=== PATIENT | female | born 1955 | race Caucasian/White ===

== ENCOUNTER 2021-03-10 06:48 | Day surgery (SDC) | payer MEDICARE ==
[~2021-03-10] VITALS: Ht 157.5 cm; Wt 60.4 kg
[2021-03-10] MEDS ORDERED: TRAZ-96 PO (07:16)
[2021-03-10] MEDS ORDERED: LOSA100T14 PO (07:16)
[2021-03-10] MEDS ORDERED: DULO60CA56 PO (07:16)
[2021-03-10] MEDS ORDERED: METO-282 PO (07:16)
[2021-03-10] MEDS ORDERED: LEVO50TA5 PO (07:16)
[2021-03-10] MEDS ORDERED: DIAZ2TAB3 PO (07:16)
[2021-03-10 07:17] VITALS: BP 177/80
[2021-03-10] MEDS ORDERED: LACTATED RINGERS 1,000 ML IV SCH (07:30)
[2021-03-10] MEDS ORDERED: CHLORHEXIDINE 15 ML UDC PO ONE (07:30)
[2021-03-10] MEDS ORDERED: CEFOTETAN PMX 2GM/50ML 50 ML IVPB ONE (08:00)
[2021-03-10] MEDS ORDERED: BUPIVACAINE/PF 0.25% ONE (09:31)
[2021-03-10] MEDS ORDERED: SILVER NITRATE STICK TP ONE (09:31)
[2021-03-10] MEDS ORDERED: EPINEPHRINE 1 MG/ML, 1ML ONE (09:31)
[2021-03-10] MEDS ORDERED: FENTANYL PF 100 MCG/2ML ONE (09:44)
[2021-03-10] MEDS ORDERED: ONDANSETRON 2MG/ML, 2ML ONE (09:46)
[2021-03-10] MEDS ORDERED: CEFAZOLIN 1,000 MG ONE (09:46)
[2021-03-10] MEDS ORDERED: DEXAMETHASONE 4 MG/ML, 1ML ONE (09:46)
[2021-03-10] MEDS ORDERED: PROPOFOL 10 MG/ML, 20ML ONE (09:46)
[2021-03-10] MEDS ORDERED: LORazepam 2 MG/ML, 1ML IVPush PRN (10:30)
[2021-03-10] MEDS ORDERED: METHOCARBAMOL 1,000 MG in DEXTROSE 5% 100 ML IV PRN (10:30)
[2021-03-10] MEDS ORDERED: OXYcodone 5 MG/5 ML ORAL.SOL UDC PO PRN (10:30)
[2021-03-10] MEDS ORDERED: ONDANSETRON 2MG/ML, 2ML IVPush PRN (10:30)
[2021-03-10] MEDS ORDERED: ACETAMINOPHEN 325 MG TABLET PO PRN (10:30)
[2021-03-10] MEDS ORDERED: PROMETHAZINE 12.5 MG SUPP PR PRN (10:30)
[2021-03-10] MEDS ORDERED: LABETALOL 5MG/ML, 20ML IV PRN (10:30)
[2021-03-10] MEDS ORDERED: HYDROmorphone 1 MG/ML, 1ML INJ IVPush PRN (10:30)
[2021-03-10] MEDS ORDERED: ALBUTEROL SULFATE 2.5 MG/3 ML NPPB PRN (10:30)
[2021-03-10] MEDS ORDERED: PROMETHAZINE 25 MG/ML, 1ML IVPush PRN (10:30)
[2021-03-10] MEDS ORDERED: hydrALAzine 20 MG/ML, 1ML IV PRN (10:30)
[2021-03-10] MEDS ORDERED: FENTANYL PF 100 MCG/2ML IV PRN (10:30)
[2021-03-10] MEDS ORDERED: ACETAMINOPHEN 650 MG/20.3 ML UDC ONE (10:50)
== END 2021-03-10 12:12 | disposition home or self-care (01) ==
LOC: OUT 06:48
PROVIDERS: ATTEND Obstetrics & Gynecology
DX: N95.0 Postmenopausal bleeding (principal); N84.0 Polyp of corpus uteri; I12.9 Hypertensive chronic kidney disease with stage 1 through stage 4 chronic kidney disease, or unspecified chronic kidney disease; N18.9 Chronic kidney disease, unspecified; E03.9 Hypothyroidism, unspecified; F41.8 Other specified anxiety disorders; F17.290 Nicotine dependence, other tobacco product, uncomplicated; Z20.822 Contact with and (suspected) exposure to COVID-19; Z79.890 Hormone replacement therapy; Z79.899 Other long term (current) drug therapy; Z88.2 Allergy status to sulfonamides; Z80.1 Family history of malignant neoplasm of trachea, bronchus and lung; Z80.8 Family history of malignant neoplasm of other organs or systems
CPT/HCPCS: 36415; 58120; 86850; 86900; 87635; 88305; 93005; J1100; J2405; J2704; J3010; J7120; J0171; J0690